=== PATIENT | female | born 1960 | race Two or more races ===

== ENCOUNTER 2017-12-29 15:18 | Emergency (ER) | payer BC ==
[~2017-12-29] VITALS: Ht 165.1 cm; Wt 68.0 kg
[2017-12-29 21:00] VITALS: BP 127/52
== END 2017-12-29 21:20 | disposition home or self-care (01) ==
LOC: ER 15:18
DX: S93.402A Sprain of unspecified ligament of left ankle, initial encounter (principal); S93.05XA Dislocation of left ankle joint, initial encounter; W18.31XA Fall on same level due to stepping on an object, initial encounter; Y93.01 Activity, walking, marching and hiking; Y92.9 Unspecified place or not applicable
CPT/HCPCS: 29515; 73610; 73630; 99284; Z7610